=== PATIENT | female | born 1960 | race Caucasian/White ===

== ENCOUNTER → 2019-12-13 06:54 | Day surgery (SDC) | payer BC, OTHER ==
[~2019-12-13] VITALS: Ht 149.9 cm; Wt 79.4 kg
--- NOTE | ~2019-12-13 | OP ---
PATIENT NAME: SUMMER ONEILL MEDICAL RECORD: [id number] :58 LOCATION:[facility] ADMISSION DATE: SURGEON: KERRI MCCOLLUM DPM DATE OF OPERATION: 12/13/2019 PREOPERATIVE DIAGNOSIS: Arthritis, right first metatarsophalangeal joint. POSTOPERATIVE DIAGNOSIS: Arthritis, right first metatarsophalangeal joint. PROCEDURE: Right first metatarsophalangeal joint fusion. ANESTHESIA: General with local infiltrate utilizing lidocaine and Marcaine plain, 15 cc total around the first ray of the right foot. HEMOSTASIS: Right thigh tourniquet at 350 mmHg. PREOPERATIVE DETAILS: The patient was brought to the hospital today due to significant pain of the right foot. The patient has suffered with significant pain and limitation because of the right foot for several months and wants to get it fixed. The patient was taken to the OR and placed on the operating table in a supine position. This was followed by induction of general anesthesia and infiltration of local anesthetic. The right extremity was then prepped and draped in usual aseptic technique followed by exsanguination and inflation of tourniquet. A 15 blade was used to create a 4-cm linear incision over the dorsal aspect of the right first MPJ. The incision was deepened down through subcutaneous tissue to the first MPJ. A McGlamry scoop elevator was used to free the plantar structures to mobilize the joint. There was significant chondromalacia arthritic deposits and fragments in the dorsal aspect of the joint. They were removed with a rongeur and bone saw. At this time, the joint was prepped with a cone and cup bea. Once the joint surfaces were prepped, a 5-hole plate was then placed on the fusion site with temporary fixation to stabilize it. The screws were then placed under rigid internal fixation with the compression screws giving excellent compression of the fusion site. Excellent alignment was noted. The wound was flushed. The capsule was repaired with 2-0 Vicryl. The subcutaneous tissue was reapproximated with 4-0 Rapide and the skin was closed with 4-0 Rapide in a subcuticular technique followed by Dermabond. Adaptic, 4 x 4 and Conform were used to dress the wound followed by application of modified Luque compression dressing. Tourniquet was deflated. POSTOPERATIVE DETAILS: The patient tolerated the procedure well and left the OR with vital signs stable and vascular status at preoperative levels. The patient was transported to recovery per anesthesia in stable condition. TRANSINT:[id number] Voice Confirmation ID: [id number] DOCUMENT ID: [id number] KERRI MCCOLLUM DPM CC: [id number] DICTATION DATE: 12/13/19 1208 SPINNER CONTINUOUS: 12/13/19 2223 [facility] [address] [id number]
[~2019-12-13 06:54] MED LIST: COZAAR50 MG PO; CRESTOR40 MG PO; LEVOXYL100 MCG PO; MERIBIN5 MG PO; NAPROSYN500 MG PO; PROTONIX40 MG PO; SINGULAIR10 MG PO; VITAMIN D5000 UNI1 PO
[2019-12-13 07:12] LABS: HEMATOCRIT 43.6 % (36.0-48.0); HEMOGLOBIN 14.4 g/dL (12-16); MCV 93.8 fL (80.0-100.0); MEAN PLATELET VOLUME 12.2 fL (7.4-10.4); RBC 4.65 10x6/uL (4.00-5.40); RDW 13.3 % (11.5-14.5); WBC 9.7 10x3/uL (4.8-10.8)
[2019-12-13 07:21] LABS: CALC OSMOLALITY 281 mosm/kg (275-300); CALCIUM 9.1 mg/dL (8.5-10.1); CARBON DIOXIDE 27.9 mmol/L (21.0-32.0); CHLORIDE - SERUM 104 mmol/L (98-107); CREATININE - SERUM 0.8 mg/dL (0.6-1.3); GLUCOSE 130 mg/dL (74-106); POTASSIUM - SERUM 4.2 mmol/L (3.5-5.1); SODIUM 140 mmol/L (136-145); UREA NITROGEN 15 mg/dL (7-18); eGFR NON AFRICAN AMERICAN 77 mL/min (90-120)
[2019-12-13 07:54] VITALS: BP 164/62; Ht 149.9 cm; Wt 79.4 kg
--- NOTE | 2019-12-13 12:28 | NUR ---
POST OP SHOE PROVIDED. ICE APPLIED AND FOOT ELEVATED ORDERED. POST OP 2 VIEW R.FOOT XRAY COMPLETED. PT AWAKE AND STABLE, READY TO GO BACK TO HER ROOM.
--- NOTE | 2019-12-13 13:55 | NUR ---
ALL DISCHARGE INSTRUCTIONS GIVEN BY IMAN OTERO RN. TAKEN OUT VIA WC AND ASSISTED TO CAR WITH . ADVISED TO CALL OR COME BACK IF ANY PROBLEMS.\
== END | disposition home or self-care (01) ==
LOC: D.OPS 06:54 → D.PAN 09:45 → D.OPS 12:45 → D.PAN 12:45
PROVIDERS: Anesthesiology; ATTEND Podiatrist
DX: M19.071 Primary osteoarthritis, right ankle and foot (principal)